=== PATIENT | female | born 1960 ===

== ENCOUNTER 2021-10-19 06:23 | Inpatient (IN) | payer MEDICARE ==
[2021-10-19] MEDS ORDERED: Digoxin 0.5 MG/2 ML AMP ONE (06:48)
[2021-10-19] MEDS ORDERED: Diltiazem 125 MG/25 ML ONE (06:48)
[2021-10-19] MEDS ORDERED: Magnesium 2 GM/50 ML BAG (IN WATER) ONE (06:48)
[2021-10-19 07:06] LABS: #Eosinphils 0.1 thou/uL (0.0-0.7); #Lymphocytes 2.2 thou/uL (1.20-3.40); #Monocytes 0.8 thou/uL (0.11-0.59); %Basophils 0.4 % (0.0-1.0); %Eosinophils 0.5 % (0.0-10.0); %Lymphocytes 19.7 % (21.0-51.0); %Monocytes 7.2 % (0.0-10.0); %Neutrophils 72.2 % (42.0-75.0); Hemoglobin 10.9 g/dL (12.0-16.0); Mean Corpuscular HGB CONC 32.1 g/dL (32.0-36.0); Mean Corpuscular Hemoglobin 29.9 pg (27.0-31.0); Mean Corpuscular Volume 93.3 fL (78.0-98.0); Mean Platelet Volume 7.7 fL (7.4-10.4); Platelet Count 237 thou/uL (130-400); RBC Distribution Width 13.2 % (11.5-14.5); Red Blood Cell (RBC) Count 3.65 mill/uL (4.20-5.40); White Blood Cell (WBC) Count 11.1 thou/uL (4.8-10.8)
[2021-10-19 07:20] LABS: ALT (SGPT) 20 U/L (8-55); AST (SGOT) 15 U/L (5-34); Alkaline Phosphatase 80 U/L (40-110); Anion Gap 13 mmol/L (10-20); BUN (Urea Nitrogen) 19 mg/dL (9.8-20.1); Bilirubin, Total 0.3 mg/dL (0.2-1.2); CK (CPK) 207 U/L (29-168); Calc. Creatinine Clearance 0 mL/min (70-130); Carbon Dioxide 25 mmol/L (23-31); Chloride 104 mmol/L (98-107); Globulin 3.5 g/dL (2.4-3.5); Glucose 459 mg/dL (80-115); Lipase 14 U/L (8-78); Protein, Total 6.5 g/dL (5.8-8.1); Sodium 138 mmol/L (136-145)
[2021-10-19 07:43] LABS: CKMB 3.5 ng/mL (0-6.6)
[2021-10-19] MEDS ORDERED: Aspirin Chewable 81 MG TAB ONE (08:32)
[2021-10-19] MEDS ORDERED: Morphine 4 MG/ML VIAL ONE (08:32)
[2021-10-19] MEDS ORDERED: Ondansetron PF 4 MG/2 ML Vial ONE (08:32)
[2021-10-19 09:59] LABS: Troponin I 0.062 ng/mL (< 0.028)
[2021-10-19] MEDS ORDERED: Enoxaparin Sodium 100 MG/ML SYRINGE ONE (10:26)
[2021-10-19 12:34] VITALS: BMI 33.7
[2021-10-19 13:56] LABS: Troponin I 0.071 ng/mL (< 0.028)
[2021-10-19] MEDS ORDERED: Dextrose 5% in Water 1,000 ML IV PRN (18:38)
[2021-10-19] MEDS ORDERED: Ondansetron ODT 4 MG TAB PO PRN (18:38)
[2021-10-19] MEDS ORDERED: Diltiazem 125 MG in Sodium Chloride 0.9% 100 ML IVPB SCH (18:38)
[2021-10-19] MEDS ORDERED: Ondansetron PF 4 MG/2 ML Vial IVP PRN (18:38)
[2021-10-19] MEDS ORDERED: Dextrose 50% Abboject 50 ML SYRINGE SLOW IVP PRN (18:38)
[2021-10-19] MEDS ORDERED: Carvedilol 3.125 MG TAB PO SCH (19:00)
[2021-10-19 19:16] LABS: Free T4 (Free Thyroxine) 0.87 ng/dL (0.70-1.48)
[2021-10-19] MEDS: HumaLOG 300 UNITS/3 ML VIAL SC PRN (20:40)
[2021-10-19] MEDS ORDERED: Zolpidem Tartrate 5 MG TAB PO PRN (21:01)
[2021-10-19] MEDS ORDERED: traMADol HCl 50 MG TAB PO PRN (21:01)
[2021-10-20 05:44] LABS: #Eosinphils 0.4 thou/uL (0.0-0.7); #Lymphocytes 3.5 thou/uL (1.20-3.40); #Monocytes 0.8 thou/uL (0.11-0.59); %Basophils 0.4 % (0.0-1.0); %Eosinophils 3.2 % (0.0-10.0); %Monocytes 7.1 % (0.0-10.0); %Neutrophils 59.4 % (42.0-75.0); Hemoglobin 10.1 g/dL (12.0-16.0); Mean Corpuscular HGB CONC 31.2 g/dL (32.0-36.0); Mean Corpuscular Hemoglobin 29.2 pg (27.0-31.0); Mean Corpuscular Volume 93.8 fL (78.0-98.0); Mean Platelet Volume 7.7 fL (7.4-10.4); Platelet Count 222 thou/uL (130-400); RBC Distribution Width 13.2 % (11.5-14.5); Red Blood Cell (RBC) Count 3.44 mill/uL (4.20-5.40); White Blood Cell (WBC) Count 11.8 thou/uL (4.8-10.8)
[2021-10-20 05:46] LABS: Anion Gap 10 mmol/L (10-20); BUN (Urea Nitrogen) 24 mg/dL (9.8-20.1); Calc. Creatinine Clearance 29 mL/min (70-130); Carbon Dioxide 27 mmol/L (23-31); Cardiac Risk 3.4 (Less than 4.5); Chloride 107 mmol/L (98-107); Cholesterol 215 mg/dl (< 200 Desired); Glucose 210 mg/dL (80-115); HDL Cholesterol 63 mg/dL (>60 Neg Risk); LDL Cholesterol, Calculated 127 mg/dL; Potassium 3.8 mmol/L (3.5-5.1); Sodium 140 mmol/L (136-145); Triglycerides 126 mg/dL (Less than 150)
[2021-10-20] MEDS ORDERED: Carvedilol 3.125 MG TAB PO SCH (08:00)
[2021-10-20 11:21] LABS: SARS-CoV-2 PCR by NAA Not Detected (NotDetected)
[2021-10-20] MEDS: HumaLOG 300 UNITS/3 ML VIAL SC PRN ×3 (12:27→21:29)
[2021-10-20] MEDS ORDERED: Cyclobenzaprine 10 MG TAB PO PRN (13:15)
[2021-10-20] MEDS ORDERED: tiZANidine HCl 4 MG TAB PO PRN (13:15)
[2021-10-20] MEDS ORDERED: methylPREDNISolone Sod Succ/PF 125 MG/2 ML VIAL IVP SCH (13:45)
[2021-10-20] MEDS ORDERED: DULoxetine 30 MG CAP PO SCH (13:45)
[2021-10-20] MEDS ORDERED: Nortriptyline 10 MG CAP PO SCH (15:15)
[2021-10-20] MEDS ORDERED: Carvedilol 6.25 MG TAB PO SCH (17:00)
[2021-10-20] MEDS ORDERED: Diltiazem 125 MG in Sodium Chloride 0.9% 100 ML IVPB SCH (17:52)
[2021-10-20] MEDS: Carvedilol 25 MG TAB PO SCH (19:56)
[2021-10-20] MEDS ORDERED: Carvedilol 25 MG TAB PO SCH (21:00)
[2021-10-21] MEDS: Sterile Water 10 ML VIAL FS PRN ×2 (02:26→05:41)
[2021-10-21] MEDS ORDERED: OLANZapine 10 MG VIAL IM SCH ×2 (02:30→05:30)
[2021-10-21 03:33] LABS: #Basophils 0.1 thou/uL (0.0-0.2); #Lymphocytes 1.1 thou/uL (1.20-3.40); #Monocytes 0.2 thou/uL (0.11-0.59); #Neutrophils 12.7 thou/uL (1.40-6.50); %Basophils 0.5 % (0.0-1.0); %Eosinophils 0.1 % (0.0-10.0); %Lymphocytes 7.5 % (21.0-51.0); %Monocytes 1.1 % (0.0-10.0); %Neutrophils 90.8 % (42.0-75.0); Hemoglobin 11.1 g/dL (12.0-16.0); Mean Corpuscular HGB CONC 32.3 g/dL (32.0-36.0); Mean Corpuscular Hemoglobin 30.4 pg (27.0-31.0); Mean Corpuscular Volume 94.1 fL (78.0-98.0); Mean Platelet Volume 8.1 fL (7.4-10.4); Platelet Count 232 thou/uL (130-400); RBC Distribution Width 13.1 % (11.5-14.5); Red Blood Cell (RBC) Count 3.66 mill/uL (4.20-5.40)
[2021-10-21 03:36] LABS: Actual Bicarbonate (HCO3a) 21.3 mEq/L (22-28); Base Excess (BEa) -4.4 mEq/L (-2.0 to +3.0); CO2 Tension 41.7 mmHg (35.0-45.0); Carboxyhemoglobin (COHb) 0.7 gm% (0.0-3.0); Hemoglobin (Hb) 10.7 g/dL (12.0-16.0); Potassium - ABG Lab 4.32 mmol/L (3.70-5.30); pH, Arterial 7.33 (7.35-7.45)
[2021-10-21 03:43] LABS: O2 Tension (PaO2), arterial 58.3 mmHg (> 80.0); Puncture Site LRA
[2021-10-21 03:44] LABS: ALV-art Gradient 39.305 mmHg (0-20)
[2021-10-21 03:46] LABS: Anion Gap 17 mmol/L (10-20); BUN (Urea Nitrogen) 40 mg/dL (9.8-20.1); Calc. Creatinine Clearance 25 mL/min (70-130); Calcium 9.2 mg/dL (7.8-10.44); Carbon Dioxide 20 mmol/L (23-31); Chloride 104 mmol/L (98-107); Glucose 434 mg/dL (80-115); Magnesium 2.1 mg/dL (1.6-2.6); Potassium 4.6 mmol/L (3.5-5.1); Sodium 136 mmol/L (136-145)
[2021-10-21] MEDS ORDERED: Sodium Bicarbonate 150 MEQ in Dextrose 5% in Water 1,000 ML IV SCH (04:30)
[2021-10-21] MEDS ORDERED: Sodium Bicarbonate 150 MEQ in Sodium Chloride 0.45% 1,000 ML IV SCH (05:00)
[2021-10-21] MEDS ORDERED: Sterile Water 10 ML VIAL FS PRN (05:30)
[2021-10-21] MEDS: HumaLOG 300 UNITS/3 ML VIAL SC PRN ×4 (06:49→21:48)
[2021-10-21] MEDS ORDERED: Sodium Chloride 0.9% 500 ML IV SCH (07:15)
[2021-10-21] MEDS ORDERED: Ziprasidone 20 MG VIAL IM SCH (07:15)
[2021-10-21] MEDS ORDERED: Sterile Water 10 ML ONE (08:49)
[2021-10-21] MEDS ORDERED: Furosemide 20 MG/2 ML VIAL SLOW IVP SCH (09:30)
[2021-10-21 10:26] LABS: Bilirubin Negative (Negative); Blood, Urine 1+ (Negative); Clarity Clear (Clear); Glucose, Urine (Dipstick) Greater than 1000 mg/dL (Negative); Ketone, Urine Negative (Negative); Leukocyte Negative Leu/uL (Negative); Nitrite Negative (Negative); Protein, Urine (Dipstick) 300 mg/dL (Neg-Trace); RBC/HPF 0-3 HPF (0-3); Specific Gravity, Urine 1.018 (1.002-1.036); Squamous Epithelial 0-3 HPF (0-3); Urobilinogen Normal mg/dL (Less than 2); WBC/HPF 0-3 HPF (0-3)
[2021-10-21 10:31] LABS: Lactic Acid 0.8 mmol/L (0.5-2.2)
[2021-10-21 10:45] LABS: Bacteria/HPF 1+ HPF (None Seen)
[2021-10-21 10:46] LABS: Urine Culture Reflex Yes Yes
[2021-10-21] MEDS ORDERED: Lantus 1000 UNITS/10 ML VIAL SC SCH (12:30)
[2021-10-21] MEDS ORDERED: hydrALAZINE 20 MG/ML VIAL SLOW IVP PRN (12:36)
[2021-10-21] MEDS ORDERED: Amlodipine 5 MG TAB PO SCH (15:45)
[2021-10-21] MEDS: Carvedilol 25 MG TAB PO SCH ×2 (17:15→20:02)
[2021-10-21] MEDS: DULoxetine 30 MG CAP PO SCH (17:16)
[2021-10-21] MEDS: Pregabalin 75 MG CAP PO SCH (17:18)
[2021-10-21] MEDS: Clopidogrel Bisulfate 75 MG TAB PO SCH (17:18)
[2021-10-21] MEDS: Nortriptyline 10 MG CAP PO SCH (17:19)
[2021-10-21] MEDS: Atorvastatin Calcium 40 MG TAB PO SCH (20:03)
[2021-10-21] MEDS: Lantus 1000 UNITS/10 ML VIAL SC SCH (21:48)
[2021-10-22] MEDS: HumaLOG 300 UNITS/3 ML VIAL SC PRN ×4 (06:35→21:02)
[2021-10-22] MEDS: Acetaminophen 325 MG TAB PO PRN ×2 (06:37→21:11)
[2021-10-22] MEDS: Pregabalin 75 MG CAP PO SCH (08:34)
[2021-10-22] MEDS: Carvedilol 25 MG TAB PO SCH ×2 (08:35→21:10)
[2021-10-22] MEDS: Clopidogrel Bisulfate 75 MG TAB PO SCH (08:36)
[2021-10-22] MEDS: Nortriptyline 10 MG CAP PO SCH (08:36)
[2021-10-22] MEDS: DULoxetine 30 MG CAP PO SCH (08:36)
[2021-10-22] MEDS: Amlodipine 5 MG TAB PO SCH (08:39)
[2021-10-22 09:21] LABS: #Basophils 0.1 thou/uL (0.0-0.2); #Eosinphils 0.2 thou/uL (0.0-0.7); #Lymphocytes 3.6 thou/uL (1.20-3.40); #Monocytes 0.8 thou/uL (0.11-0.59); #Neutrophils 10.2 thou/uL (1.40-6.50); %Basophils 0.4 % (0.0-1.0); %Eosinophils 1.2 % (0.0-10.0); %Lymphocytes 24.1 % (21.0-51.0); %Monocytes 5.6 % (0.0-10.0); %Neutrophils 68.7 % (42.0-75.0); Hemoglobin 10.1 g/dL (12.0-16.0); Mean Corpuscular HGB CONC 32.4 g/dL (32.0-36.0); Mean Corpuscular Hemoglobin 30.4 pg (27.0-31.0); Mean Platelet Volume 7.7 fL (7.4-10.4); Platelet Count 235 thou/uL (130-400); RBC Distribution Width 13.3 % (11.5-14.5); Red Blood Cell (RBC) Count 3.32 mill/uL (4.20-5.40); White Blood Cell (WBC) Count 14.9 thou/uL (4.8-10.8)
[2021-10-22 09:35] LABS: ALT (SGPT) 13 U/L (8-55); AST (SGOT) 10 U/L (5-34); Albumin 2.8 g/dL (3.4-4.8); Alkaline Phosphatase 84 U/L (40-110); Anion Gap 12 mmol/L (10-20); BUN (Urea Nitrogen) 53 mg/dL (9.8-20.1); Bilirubin, Total 0.2 mg/dL (0.2-1.2); Calc. Creatinine Clearance 23 mL/min (70-130); Calcium 8.8 mg/dL (7.8-10.44); Carbon Dioxide 27 mmol/L (23-31); Chloride 105 mmol/L (98-107); Globulin 3.2 g/dL (2.4-3.5); Glucose 180 mg/dL (80-115); Potassium 3.7 mmol/L (3.5-5.1); Sodium 140 mmol/L (136-145)
[2021-10-22] MEDS: Sodium Chloride 0.9% 1,000 ML IV SCH (12:45)
[2021-10-22] MEDS ORDERED: Artificial Tear Sol 15 ML BOT EA EYE PRN (17:44)
[2021-10-22] MEDS: Lantus 1000 UNITS/10 ML VIAL SC SCH (21:06)
[2021-10-22] MEDS: Atorvastatin Calcium 40 MG TAB PO SCH (21:09)
[2021-10-22] MEDS: tiZANidine HCl 4 MG TAB PO SCH (21:11)
[2021-10-23 05:47] LABS: Anion Gap 9 mmol/L (10-20); BUN (Urea Nitrogen) 58 mg/dL (9.8-20.1); Calc. Creatinine Clearance 25 mL/min (70-130); Calcium 8.4 mg/dL (7.8-10.44); Carbon Dioxide 26 mmol/L (23-31); Chloride 107 mmol/L (98-107); Glucose 232 mg/dL (80-115); Potassium 4.2 mmol/L (3.5-5.1); Sodium 138 mmol/L (136-145)
[2021-10-23] MEDS: HumaLOG 300 UNITS/3 ML VIAL SC PRN ×2 (06:32→18:45)
[2021-10-23 07:59] LABS: #Basophils 0.1 thou/uL (0.0-0.2); #Eosinphils 0.5 thou/uL (0.0-0.7); #Lymphocytes 2.4 thou/uL (1.20-3.40); #Monocytes 0.8 thou/uL (0.11-0.59); #Neutrophils 6.2 thou/uL (1.40-6.50); %Eosinophils 4.8 % (0.0-10.0); %Lymphocytes 24.3 % (21.0-51.0); %Monocytes 8.2 % (0.0-10.0); %Neutrophils 61.8 % (42.0-75.0); Hemoglobin 9.7 g/dL (12.0-16.0); Mean Corpuscular HGB CONC 32.2 g/dL (32.0-36.0); Mean Corpuscular Hemoglobin 30.5 pg (27.0-31.0); Mean Corpuscular Volume 94.7 fL (78.0-98.0); Mean Platelet Volume 7.6 fL (7.4-10.4); Platelet Count 176 thou/uL (130-400); RBC Distribution Width 13.2 % (11.5-14.5); Red Blood Cell (RBC) Count 3.17 mill/uL (4.20-5.40)
[2021-10-23] MEDS: Pregabalin 75 MG CAP PO SCH (08:19)
[2021-10-23] MEDS: Carvedilol 25 MG TAB PO SCH ×2 (08:19→20:35)
[2021-10-23] MEDS: Amlodipine 5 MG TAB PO SCH (08:20)
[2021-10-23] MEDS: Nortriptyline 10 MG CAP PO SCH (08:20)
[2021-10-23] MEDS: Clopidogrel Bisulfate 75 MG TAB PO SCH (08:20)
[2021-10-23 08:22] LABS: ALT (SGPT) 11 U/L (8-55); AST (SGOT) 9 U/L (5-34); Albumin 2.5 g/dL (3.4-4.8); Alkaline Phosphatase 79 U/L (40-110); Anion Gap 9 mmol/L (10-20); BUN (Urea Nitrogen) 57 mg/dL (9.8-20.1); Bilirubin, Total 0.3 mg/dL (0.2-1.2); Calc. Creatinine Clearance 27 mL/min (70-130); Calcium 8.4 mg/dL (7.8-10.44); Carbon Dioxide 28 mmol/L (23-31); Chloride 110 mmol/L (98-107); Glucose 142 mg/dL (80-115); Protein, Total 5.5 g/dL (5.8-8.1); Sodium 143 mmol/L (136-145)
[2021-10-23] MEDS: Sodium Chloride 0.9% 1,000 ML IV SCH (08:55)
[2021-10-23] MEDS ORDERED: DULoxetine 30 MG CAP PO SCH ×2 (10:45→21:00)
[2021-10-23] MEDS ORDERED: Senokot S 8.6-50 MG TAB PO SCH (10:45)
[2021-10-23] MEDS: DULoxetine 30 MG CAP PO SCH (13:36)
[2021-10-23] MEDS: Atorvastatin Calcium 40 MG TAB PO SCH (20:34)
[2021-10-23] MEDS: tiZANidine HCl 4 MG TAB PO SCH (20:34)
[2021-10-23] MEDS: Senokot S 8.6-50 MG TAB PO SCH (20:34)
[2021-10-23] MEDS: Lantus 1000 UNITS/10 ML VIAL SC SCH (20:40)
[2021-10-24] MEDS: Pregabalin 75 MG CAP PO SCH (07:50)
[2021-10-24] MEDS: Sodium Chloride 0.9% 1,000 ML IV SCH (07:50)
[2021-10-24] MEDS: Carvedilol 25 MG TAB PO SCH (07:51)
[2021-10-24] MEDS: Clopidogrel Bisulfate 75 MG TAB PO SCH (07:51)
[2021-10-24] MEDS: Nortriptyline 10 MG CAP PO SCH (07:51)
[2021-10-24] MEDS: Senokot S 8.6-50 MG TAB PO SCH (07:51)
[2021-10-24] MEDS: Amlodipine 5 MG TAB PO SCH (07:52)
[2021-10-24 10:30] LABS: Anion Gap 9 mmol/L (10-20); BUN (Urea Nitrogen) 43 mg/dL (9.8-20.1); Calc. Creatinine Clearance 35 mL/min (70-130); Calcium 8.3 mg/dL (7.8-10.44); Carbon Dioxide 27 mmol/L (23-31); Chloride 112 mmol/L (98-107); Glucose 74 mg/dL (80-115); Potassium 3.6 mmol/L (3.5-5.1); Sodium 144 mmol/L (136-145)
[2021-10-24 16:04] VITALS: BP 176/75; TEMP 98.1
== END 2021-10-24 19:45 | disposition home or self-care (01) | DRG 551 ==
LOC: ERS 06:23 → 2SW 09:08 → OBSVTOIN 10-20 15:51 → 2NO 10-24 10:13
PROVIDERS: ADMIT Internal Medicine; ATTEND Internal Medicine
DX: M51.16 Intervertebral disc disorders with radiculopathy, lumbar region (principal); G92.8 Other toxic encephalopathy; N18.4 Chronic kidney disease, stage 4 (severe); N25.81 Secondary hyperparathyroidism of renal origin; N17.9 Acute kidney failure, unspecified; M48.062 Spinal stenosis, lumbar region with neurogenic claudication; Z20.822 Contact with and (suspected) exposure to COVID-19; G89.29 Other chronic pain; I48.91 Unspecified atrial fibrillation; E11.22 Type 2 diabetes mellitus with diabetic chronic kidney disease; I12.9 Hypertensive chronic kidney disease with stage 1 through stage 4 chronic kidney disease, or unspecified chronic kidney disease; E78.5 Hyperlipidemia, unspecified; M79.7 Fibromyalgia; E78.00 Pure hypercholesterolemia, unspecified; E11.319 Type 2 diabetes mellitus with unspecified diabetic retinopathy without macular edema; M70.62 Trochanteric bursitis, left hip; M70.61 Trochanteric bursitis, right hip; T38.0X5A Adverse effect of glucocorticoids and synthetic analogues, initial encounter; D72.829 Elevated white blood cell count, unspecified; D63.1 Anemia in chronic kidney disease; K21.9 Gastro-esophageal reflux disease without esophagitis; R33.9 Retention of urine, unspecified; Z79.4 Long term (current) use of insulin; Z90.710 Acquired absence of both cervix and uterus; Z98.890 Other specified postprocedural states; Z90.49 Acquired absence of other specified parts of digestive tract; Z79.01 Long term (current) use of anticoagulants; Z79.82 Long term (current) use of aspirin; Z79.899 Other long term (current) drug therapy; Z88.5 Allergy status to narcotic agent; Z88.8 Allergy status to other drugs, medicaments and biological substances
CPT/HCPCS: 36415; 36416; 36600; 70450; 71045; 72148; 76770; 80048; 80053; 80061; 81001; 82010; 82140; 82550; 82553; 82805; 83605; 83690; 83735; 83880; 84439; 84443; 84484; 85025; 85379; 87086; 93005; 93010; 93306; 93970; 94760; J0360; J1160; J1650; J1815; J1940; J2270; J2358; J2405; J2930; J3475; J3486; J3490; J7050; Q0162; U0003; U0005